=== PATIENT | female | born 1955 | race Two or more races ===

== ENCOUNTER 2022-05-17 08:04 | Emergency (ER) | payer OTHER ==
[~2022-05-17] VITALS: Ht 157.5 cm; Wt 86.2 kg
[2022-05-17 10:15] VITALS: BP 173/81
[2022-05-17] MEDS ORDERED: TRAM-297 PO (11:17)
== END 2022-05-17 11:25 | disposition home or self-care (01) ==
LOC: ER 08:04
DX: M23.91 Unspecified internal derangement of right knee (principal); E11.9 Type 2 diabetes mellitus without complications
CPT/HCPCS: 73562

== ENCOUNTER 2024-04-20 09:13 | Emergency (ER) | payer OTHER ==
[~2024-04-20] VITALS: Ht 157.5 cm; Wt 90.5 kg
[~2024-04-20 09:13] MED LIST: TRAM-297 PO
[2024-04-20 10:29] VITALS: BP 170/91; PULSE 69; RESP 16; TEMP 98; O2SAT 98
[2024-04-20] MEDS: HYDROcodone-ACET 5/325MG TAB PO ONE (11:34)
[2024-04-20] MEDS ORDERED: LIDO5DIS21 TOP (12:12)
[2024-04-20] MEDS ORDERED: MELO7.5T7 PO (12:12)
== END 2024-04-20 12:12 | disposition home or self-care (01) ==
LOC: ER 09:13
DX: M54.12 Radiculopathy, cervical region (principal); E11.9 Type 2 diabetes mellitus without complications; Z79.899 Other long term (current) drug therapy
CPT/HCPCS: 73030

== ENCOUNTER 2024-09-04 10:46 | Emergency (ER) | payer OTHER ==
[~2024-09-04] VITALS: Ht 157.5 cm; Wt 90.6 kg
[~2024-09-04 10:46] MED LIST changes: +LIDO5DIS21 TOP; +MELO7.5T7 PO
[2024-09-04 11:58] LABS: Basophils # (auto) 0 10 ^3/uL (0-0.2); Basophils % (auto) 0.4 % (0.0-2.0); Eosinophils # (auto) 0.2 10 ^3/uL (0-0.8); Eosinophils % (auto) 3.3 % (0.0-7.0); Hematocrit 37.9 % (36.0-46.0); Hemoglobin 12.4 g/dL (12.2-16.2); Lymphocytes # (auto) 1.9 10 ^3/uL (0.4-5.4); Lymphocytes % (auto) 28.6 % (10.0-50.0); Mean Corpuscular Hemoglobin 29.4 pg (28.0-32.0); Mean Corpuscular Hgb Conc. 32.6 g/dL (32.0-36.0); Mean Corpuscular Volume 90.2 fL (80.0-100.0); Monocytes # (auto) 0.5 10 ^3/uL (0-1.3); Monocytes % (auto) 7.2 % (0.0-12.0); Neutrophils # (auto) 4.1 10 ^3/uL (1.6-8.6); Neutrophils % (auto) 60.5 % (37.0-80.0); Platelet Count (auto) 237 10^3/uL (140-450); Red Cell Distribution Width 13.9 % (11.8-14.3); White Blood Cell 6.8 10^3/uL (4.4-10.8)
[2024-09-04 12:06] LABS: Chloride 108 mmol/L (98-107); Potassium 4.7 mmol/L (3.5-5.1); Sodium 138 mmol/L (136-145)
[2024-09-04 12:07] LABS: Anion Gap 7 (5-15); Calcium 10.1 mg/dL (8.7-10.4); Carbon Dioxide 23 mmol/L (20-31)
[2024-09-04 12:12] LABS: BUN/Creatinine Ratio 17.9 (10.0-20.0); Blood Urea Nitrogen 32 mg/dL (9-23); Glucose 349 mg/dL (74-106)
[2024-09-04] MEDS: SODIUM CHLORIDE 0.9% 1,000 ML IV ONE (13:00)
[2024-09-04 13:12] LABS: Urine Blood TRACE /uL (Negative); Urine Clarity Clear (Clear); Urine Color Light-Yellow (Yellow); Urine Protein, UAD 3+ (Negative); Urine Specific Gravity 1.013 (1.001-1.035); Urine Urobilinogen Normal (Negative); Urine pH 6.5 (5.0-9.0)
[2024-09-04] MEDS: METOCLOPRAMIDE HCL 5MG/ml INJ 2ml VIAL IV ONE (14:09)
[2024-09-04] MEDS: KETOROLAC TROMETH 30 MG/ML 1ML VIAL IV ONE (14:09)
[2024-09-04] MEDS: cefTRIAXone 1GM/50ML D5W 50 ML IV ONE (14:09)
[2024-09-04 14:18] VITALS: BP 148/78; TEMP 98
[2024-09-04 14:19] VITALS: PULSE 75; RESP 18; O2SAT 97
[2024-09-04 14:19] LABS: Urine Bacteria FEW /hpf (None Seen); Urine WBC 10 /hpf (0 - 5)
[2024-09-04] MEDS ORDERED: AUG875T PO (15:11)
[2024-09-04] MEDS ORDERED: BACI1OIN45 EX (15:11)
[2024-09-04] MEDS ORDERED: NAP500T PO (15:11)
== END 2024-09-04 15:29 | disposition home or self-care (01) ==
LOC: ER 10:46
DX: L03.312 Cellulitis of back [any part except buttock and flank] (principal); E11.65 Type 2 diabetes mellitus with hyperglycemia; E11.21 Type 2 diabetes mellitus with diabetic nephropathy; E11.40 Type 2 diabetes mellitus with diabetic neuropathy, unspecified; E03.9 Hypothyroidism, unspecified; I10 Essential (primary) hypertension; Z90.49 Acquired absence of other specified parts of digestive tract; Z98.890 Other specified postprocedural states; Z79.899 Other long term (current) drug therapy
CPT/HCPCS: 36415; 80048; 81001; 84443; 85025; 87205; 96361; 96365; 96375; 99284; J0696; J1885; J2765; J7030

== ENCOUNTER 2025-08-24 08:44 | Outpatient (CLI) | payer MEDICAID, OTHER ==
[~2025-08-24 08:44] MED LIST changes: +AUG875T PO; +BACI1OIN45 EX; +NAP500T PO
[2025-08-24 09:09] LABS: Hematocrit 39.8 % (36.0-46.0); Hemoglobin 13.3 g/dL (12.2-16.2); Mean Corpuscular Hemoglobin 29.3 pg (28.0-32.0); Mean Corpuscular Volume 87.7 fL (80.0-100.0); Nucleated Red Blood Cells % 0.1 %
[2025-08-24 09:54] LABS: Alanine Aminotransferase 23 U/L (7-40); Alkaline Phosphatase 93 U/L (46-116); Anion Gap 12 (5-15); Calcium 8.9 mg/dL (8.7-10.4); Carbon Dioxide 22 mmol/L (20-31); Chloride 103 mmol/L (98-107); Sodium 137 mmol/L (136-145); Total Protein 7.6 g/dL (5.7-8.2)
[2025-08-24 09:55] LABS: Albumin 4.5 g/dL (3.2-4.8); Bilirubin, Total 0.4 mg/dL (0.2-1.0); Cholesterol 172 mg/dL (< 200)
[2025-08-24 09:56] LABS: BUN/Creatinine Ratio 13.9 (10.0-20.0)
[2025-08-24 10:02] LABS: Blood Urea Nitrogen 33 mg/dL (9-23); Glucose 208 mg/dL (74-106); HDL Cholesterol 39 mg/dL (40-59); Potassium 5.1 mmol/L (3.5-5.1); Triglycerides 455 mg/dL (< 150)
[2025-08-24 10:05] LABS: Microalb/Creat Ratio, Urine 4823.0
== END 2025-08-24 17:00 | disposition home or self-care (01) ==
LOC: LAB 08:44
PROVIDERS: ATTEND Nurse Practitioner Family
DX: E11.9 Type 2 diabetes mellitus without complications
CPT/HCPCS: 36415; 80053; 80061; 82043; 82306; 82570; 83036; 84443; 85025